=== PATIENT | male | born 2000 | race Caucasian/White ===

== ENCOUNTER 2023-09-30 17:00 | Emergency (ER) | payer OTHER ==
[2023-09-30] MEDS: Acetaminophen 500 MG Tab PO ONE (17:14)
[2023-09-30 17:58] LABS: CORONAVIRUS COVID-19 NAA NEGATIVE (NEGATIVE); INFLUENZA A NAA NEGATIVE (NEGATIVE); INFLUENZA B NAA NEGATIVE (NEGATIVE); RESPIRATORY SYNCYTIAL VIR NAA NEGATIVE (NEGATIVE)
[2023-09-30] MEDS ORDERED: Sodium Chloride 0.9% 10 ML Syringe FLUSH PRN (18:00)
[2023-09-30] MEDS: Sodium Chloride 0.9% 1,000 ML IV ONE (18:08)
[2023-09-30 18:11] LABS: BASOPHILS PERCENT AUTO 0.1 % (0.2-1.2); EOSINOPHILS PERCENT AUTO 0.1 % (0.0-4.0); HEMATOCRIT 43.4 % (40.0-52.0); HEMOGLOBIN 14.8 g/dL (14.0-18.0); IMMATURE GRAN ABSOLUTE AUTO 0.03 x10^3/uL (0.00-0.07); LYMPHOCYTES ABSOLUTE AUTO 1.7 x10^3/uL (1.0-4.8); LYMPHOCYTES PERCENT AUTO 11.4 % (25.0-50.0); MEAN CORPUSCULAR HEMOGLOBIN 28.2 pg (26.0-32.0); MEAN CORPUSCULAR HGB CONC 34.1 g/dL (32.0-36.0); MEAN CORPUSCULAR VOLUME 82.7 fL (78.0-93.0); MONOCYTES ABSOLUTE AUTO 1.3 x10^3/uL (0.0-0.8); MONOCYTES PERCENT AUTO 8.4 % (2.0-11.0); NEUTROPHILS PERCENT AUTO 79.8 % (50.0-80.0); PLATELET COUNT,PLT 190 x10^3/uL (130-400); RED BLOOD CELL COUNT 5.25 x10^6/uL (4.5-6.0)
[2023-09-30] MEDS: Ketorolac 30 MG/ML SDV IVPUSH ONE (18:11)
[2023-09-30 18:32] LABS: A/G RATIO 1.09; ALBUMIN 3.6 g/dL (3.4-5.0); ANION GAP 14.2 mmol/L (5-15); BILIRUBIN TOTAL 1.4 mg/dL (0.2-1.0); CALCIUM 8.6 mg/dL (8.5-10.1); CREATININE 1.2 mg/dL (0.70-1.30); EST CRCL DRUG DOSING (CG) 108.2 mL/min; POTASSIUM,K 4.2 mmol/L (3.5-5.1); PROTEIN TOTAL,TP 6.9 g/dL (6.4-8.2)
== END 2023-09-30 18:50 | disposition home or self-care (01) ==
LOC: VM.ED 17:00
DX: R50.9 Fever, unspecified (principal); R53.81 Other malaise; Z91.040 Latex allergy status; Z91.010 Allergy to peanuts
CPT/HCPCS: 0241U; 80053; 83605; 85025; 93005; 93010; 96361; 96374; 99284; 99285-25; A9270-GY; J1885; J7030